=== PATIENT | female | born 1980 | race Caucasian/White ===

== ENCOUNTER → 2016-10-17 | Outpatient (CLI) | payer BC ==
[~2016-10-17] MED LIST: MELOTONIN; NORT25CA PO
--- NOTE | 2016-10-17 12:15 | DIAGNOSTIC IMAGING REPORT ---
[facility]UB CLINICAL HISTORY: LOWER ABD PAIN COMPARISON STUDY: No previous studies for comparison. FINDINGS: There is no pathologic bowel dilatation. There is no conventional radiographic evidence organomegaly. An IUD is visualized in the pelvis. There are sclerotic and erosive changes involving the symphysis pubis likely stress-related basis. IMPRESSION: 1. No evidence of pathologic bowel dilatation 2. Visualized IUD 3. Sclerotic and erosive changes involving the symphysis pubis likely on a chronic stress related basis Electronically signed by: Jeremiah Odom M.D. 10/17/2016 12:13 PM Dictated Date/Time: 10/17/2016 12:12 PM
== END | disposition home or self-care (01) ==
LOC: C.RAD 11:29
PROVIDERS: ATTEND Family Medicine
DX: R10.30 Lower abdominal pain, unspecified (principal); R93.7 Abnormal findings on diagnostic imaging of other parts of musculoskeletal system; Z97.5 Presence of (intrauterine) contraceptive device

== ENCOUNTER → 2017-07-20 | Outpatient (CLI) | payer BC ==
[~2017-07-20] MED LIST changes: +GADAVIST IV PRN
--- NOTE | 2017-07-20 21:37 | DIAGNOSTIC IMAGING REPORT ---
BRAIN COMBO FOR MS HISTORY: 37 years-old Female IMBALANCE, CONFUSION, CONCERN FOR POSSIBLE MS acute confusion for 3 weeks. Clinical concern for possible multiple sclerosis. COMPARISON: None available TECHNIQUE: Multiplanar multisequence MRI of the brain was obtained both with and without the use of 8 mL Gadavist utilizing institutional seizure protocol. FINDINGS: No restricted diffusion to suggest acute ischemia. The midline structures including the corpus callosum, brainstem, optic chiasm, infundibulum, pituitary and pineal glands appear unremarkable as seen on the sagittal T1 sequence. No cerebellar tonsillar herniation. There is no acute intracranial hemorrhage, midline shift, abnormal extra-axial collections, hydrocephalus or intracranial mass identified. Single 2 mm focus of T2/FLAIR prolongation is seen within the subcortical white matter of the right frontal lobe on image 12 of series 12 and image 8 of series 10. No additional significant signal abnormalities of the brain identified. This is nonspecific and likely clinically insignificant. No significant signal abnormalities are seen within the periventricular white matter to suggest multiple sclerosis. No infratentorial foci identified. No abnormal intra-axial or extra-axial enhancement identified. 3 mm enhancing focus of the right frontal calvarium also demonstrates mild hyperintensity on the T1 sequence suggesting arachnoid granulation. This is not well seen on the coronal or sagittal images. Major flow voids at the level the skull base appear patent. Mild polypoid mucosal thickening of the maxillary sinuses. Mild ethmoid sinus disease. Mastoid air cells are generally clear. Scalp and soft tissues are unremarkable. IMPRESSION: 1. No acute intracranial abnormality. No evidence to suggest multiple sclerosis. 2. Mild maxillary and ethmoid sinus disease. The above report was generated using voice recognition software. It may contain grammatical, syntax or spelling errors. Electronically signed by: Donavon Virgen M.D. 07/20/2017 9:36 PM Dictated Date/Time: 07/20/2017 9:22 PM
== END | disposition home or self-care (01) ==
LOC: C.MRI 18:35
PROVIDERS: ATTEND Psychiatry & Neurology Neurology
DX: R26.89 Other abnormalities of gait and mobility (principal)